=== PATIENT | female | born 1960 | race Caucasian/White ===

== ENCOUNTER 2017-03-17 18:01 | Emergency (ER) | payer SELFPAY ==
[~2017-03-17] VITALS: Ht 157.5 cm; Wt 74.4 kg
[~2017-03-17 18:01] MED LIST: BG MC; GLU5 PO; HUMULIN R100 U/1 M1 SC; LEVAQUIN750 MG PO; MEDDP PO; METFORMIN HYD1000 M1 PO; ZES10 PO
[2017-03-17 19:10] VITALS: Ht 157.5 cm; Wt 74.4 kg
[2017-03-17 22:32] VITALS: BP 159/81
== END 2017-03-17 22:32 | disposition home or self-care (01) ==
LOC: ED 18:01
DX: S90.121A Contusion of right lesser toe(s) without damage to nail, initial encounter (principal); E11.9 Type 2 diabetes mellitus without complications; I10 Essential (primary) hypertension; E03.9 Hypothyroidism, unspecified; X58.XXXA Exposure to other specified factors, initial encounter; Y93.9 Activity, unspecified; Y99.8 Other external cause status; Y92.89 Other specified places as the place of occurrence of the external cause